=== PATIENT | female | born 1990 | race Caucasian/White ===

== ENCOUNTER 2019-01-03 05:38 | Day surgery (SDC) | payer MEDICAID ==
[~2019-01-03] VITALS: Ht 167.6 cm; Wt 72.1 kg
[2019-01-03] MEDS ORDERED: LACTATED RINGERS 1,000 ML IV SCH (06:30)
[2019-01-03 06:35] LABS: UCG SCREEN NEGATIVE
[2019-01-03] MEDS ORDERED: BUPIVACAINE/EPINEPH/PF 0.25%/0.0005 10ML ONE (07:11)
[2019-01-03] MEDS ORDERED: MORPHINE SULFATE 10 MG/ML CPJ ONE (07:12)
[2019-01-03] MEDS ORDERED: MORPHINE SULFATE/PF 1MG/ML 10ML AMP ONE (07:12)
[2019-01-03] MEDS ORDERED: KETAMINE HCL 50 MG/ML 10ML ONE (07:16)
[2019-01-03] MEDS ORDERED: PROPOFOL 200MG/20ML VIAL IV ONE (07:21)
[2019-01-03] MEDS ORDERED: FENTANYL CITRATE/PF 50MCG/ML 2ML VIAL ONE ×2 (07:21→10:00)
[2019-01-03] MEDS ORDERED: MIDAZOLAM HCL 2 MG/2 ML VIAL ONE (07:21)
[2019-01-03] MEDS ORDERED: GLYCOPYRROLATE 0.2 MG/ML 2ML VIAL ONE (08:04)
[2019-01-03] MEDS ORDERED: HYDROMORPHONE HCL/PF 2MG/ML CPJ IV PRN ×2 (10:45)
[2019-01-03] MEDS ORDERED: HYDROCODONE/ACETAMINOPHEN 10/325MG TABLET PO PRN (10:45)
[2019-01-03] MEDS ORDERED: ONDANSETRON HCL 4MG/2ML INJ IV PRN (10:45)
[2019-01-03] MEDS ORDERED: ACETAMINOPHEN 500MG TABLET PO SCH (14:00)
== END 2019-01-03 14:00 | disposition home or self-care (01) ==
LOC: OR 05:38
PROVIDERS: ATTEND Orthopaedic Surgery
DX: M23.251 Derangement of posterior horn of lateral meniscus due to old tear or injury, right knee (principal); M94.261 Chondromalacia, right knee; M79.4 Hypertrophy of (infrapatellar) fat pad; M65.861 Other synovitis and tenosynovitis, right lower leg; M23.300 Other meniscus derangements, unspecified lateral meniscus, right knee; F41.9 Anxiety disorder, unspecified
CPT/HCPCS: 29881; 81025; 88304; 88311; 97116; 97161; J0171; J2250; J2274; J2405; J2704; J3010; J3490; J2270